=== PATIENT | female | born 1960 | race Caucasian/White ===

== ENCOUNTER 2017-10-18 20:00 | Emergency (ER) | payer OTHER ==
[~2017-10-18] VITALS: Ht 167.6 cm; Wt 63.5 kg
[~2017-10-18 20:00] MED LIST: ESOM40CA PO; ESTR1PAT80 TD; SERT50TA PO; atarax
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
[2017-10-18] MEDS ORDERED: HYDROcodone/APAP 5/325MG 1 TAB TABLET PO ONE (22:45)
[2017-10-18] MEDS ORDERED: NAPROXEN 500 MG TABLET PO ONE (22:45)
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
[2017-10-19] MEDS ORDERED: NAPR-683 PO (00:57)
[2017-10-19] MEDS ORDERED: CYCL10TA2 PO (00:57)
[2017-10-19 01:00] VITALS: BP 112/56
[2017-10-19] MEDS ORDERED: CYCLOBENZAPRINE 10 MG TABLET. PO ONE (01:00)
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
== END 2017-10-19 01:15 | disposition home or self-care (01) ==
LOC: ER 20:00
DX: S16.1XXA Strain of muscle, fascia and tendon at neck level, initial encounter (principal); S29.012A Strain of muscle and tendon of back wall of thorax, initial encounter; S46.912A Strain of unspecified muscle, fascia and tendon at shoulder and upper arm level, left arm, initial encounter; R51 Headache; K21.9 Gastro-esophageal reflux disease without esophagitis; M41.9 Scoliosis, unspecified; G89.29 Other chronic pain; Z98.1 Arthrodesis status; V43.52XA Car driver injured in collision with other type car in traffic accident, initial encounter; Y93.I9 Activity, other involving external motion; Y92.410 Unspecified street and highway as the place of occurrence of the external cause; Y99.8 Other external cause status
CPT/HCPCS: 70450; 72072; 72125; 99284-25

== ENCOUNTER 2020-07-05 12:43 | Emergency (ER) | payer OTHER ==
[~2020-07-05] VITALS: Ht 167.6 cm; Wt 64.6 kg
[~2020-07-05 12:43] MED LIST changes: +CYCL10TA2 PO; +NAPR-683 PO
--- NOTE | 2020-07-05 14:32 | RAD ---
EXAM: Right lower extremity venous Doppler sonogram. HISTORY: Pain and swelling. TECHNIQUE: Parkinson scale and color Doppler sonographic evaluation of the right lower extremity veins with spectral waveform analysis was performed. FINDINGS: There is normal color flow, normal compressibility and there are normal spectral waveforms in the common femoral, superficial femoral, popliteal, posterior tibial and greater saphenous veins. IMPRESSION: No Doppler evidence of lower extremity deep venous thrombosis. Electronically signed by: Clementina Fleming MD (07/05/2020 2:29 PM) [id number]
[2020-07-05 14:59] VITALS: BP 131/76
--- NOTE | 2020-07-05 15:13 | PHYS DOC ---
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 She states it started shortly after she had a colonoscopy a couple of weeks ago. She denies any chest pain or shortness of breath. She denies dyspnea on exertion. She does state the pain in her calf gets worse when she tries to go downstairs. She does not recall any specific trauma to the calf. [] Review of Systems: Review of Systems: Constitutional: Denies fever or chills. [] Eyes: Denies change in visual acuity. [] HENT: Denies nasal congestion or sore throat. [] Respiratory: Denies cough or shortness of breath. [] Cardiovascular: Denies chest pain or edema. [] GI: Denies abdominal pain, nausea, vomiting, bloody stools or diarrhea. [] : Denies dysuria. [] Musculoskeletal: Per HPI [] Integument: Denies rash. [] Neurologic: Denies headache, focal weakness or sensory changes. [] Endocrine: Denies polyuria or polydipsia. [] Lymphatic: Denies swollen glands. [] Psychiatric: Denies depression or anxiety. [] Heart Score: Risk Factors: Risk Factors: DM, Current or recent (<one month) smoker, HTN, HLP, family history of CAD, obesity. Risk Scores: Score 0 - 3: 2.5% MACE over next 6 weeks - Discharge Home Score 4 - 6: 20.3% MACE over next 6 weeks - Admit for Clinical Observation Score 7 - 10: 72.7% MACE over next 6 weeks - Early Invasive Strategies Allergies: Allergies: Allergies Coded Allergies Type Severity Reaction Last Updated Verified No Known Drug Allergies 05/04/15 No Physical Exam: PE: Constitutional: Well developed, well nourished, no acute distress, non-toxic appearance. [] HENT: Normocephalic, atraumatic, bilateral external ears normal, oropharynx moist, no oral exudates, nose normal. [] Eyes: PERRLA, EOMI, conjunctiva normal, no discharge. [] Neck: Normal range of motion, no tenderness, supple, no stridor. [] Cardiovascular:Heart rate regular rhythm, no murmur [] Lungs & Thorax: Bilateral breath sounds clear to auscultation [] Abdomen: Bowel sounds normal, soft, no tenderness, no masses, no pulsatile masses. [] Skin: No obvious bruising. [] Back: No tenderness, no CVA tenderness. [] Extremities: Right calf is mildly swollen and tender to palp in the mid belly of the gastroc [] Neurologic: Alert and oriented X 3, normal motor function, normal sensory function, no focal deficits noted. [] Psychologic: Affect normal, judgement normal, mood normal. [] Current Patient Data: Vital Signs: Vital Signs Date Time Temp Pulse Resp B/P (MAP) Pulse Ox O2 Delivery O2 Flow Rate FiO2 07/05/20 13:25 98.2 69 16 160/95 (116) 100 Room Air 98.2 EKG: EKG: [] Radiology/Procedures: Radiology/Procedures: []REASON: right calf pain PROCEDURE: VENOUS LOWER EXTREMITY RIGHT EXAM: Right lower extremity venous Doppler sonogram. HISTORY: Pain and swelling. TECHNIQUE: Parkinson scale and color Doppler sonographic evaluation of the right lower extremity veins with spectral waveform analysis was performed. FINDINGS: There is normal color flow, normal compressibility and there are normal spectral waveforms in the common femoral, superficial femoral, popliteal, posterior tibial and greater saphenous veins. IMPRESSION: No Doppler evidence of lower extremity deep venous thrombosis. Course & Med Decision Making: Course & Med Decision Making Pertinent Labs and Imaging studies reviewed. (See chart for details) [] Dragon Disclaimer: Dragon Disclaimer: This electronic medical record was generated, in whole or in part, using a voice recognition dictation system. Departure Departure Impression: Primary Impression: Muscle strain Disposition: 01 HOME, SELF-CARE Condition: STABLE Referrals: LINK VILLELA DO (PCP) Patient Instructions: Muscle Cramps, [id number] Additional Instructions: Return to the emergency department with any new or concerning symptoms Justicifation of Admission Dx: Justifications for Admission: Justification of Admission Dx: PAGE High DO Jul 05, 2020 15:13
== END 2020-07-05 15:25 | disposition home or self-care (01) ==
LOC: ER 12:43
DX: S86.911A Strain of unspecified muscle(s) and tendon(s) at lower leg level, right leg, initial encounter (principal); K21.9 Gastro-esophageal reflux disease without esophagitis; E78.00 Pure hypercholesterolemia, unspecified; Z90.710 Acquired absence of both cervix and uterus; X50.9XXA Other and unspecified overexertion or strenuous movements or postures, initial encounter; Y93.89 Activity, other specified; Y92.89 Other specified places as the place of occurrence of the external cause; Y99.8 Other external cause status
CPT/HCPCS: 93971; 99284

== ENCOUNTER → 2020-08-24 | Outpatient (CLI) | payer OTHER | LOC: LAB 09:25 | PROVIDERS: ATTEND Internal Medicine Pulmonary Disease | DX: R51.9 Headache, unspecified (principal); R68.83 Chills (without fever); J02.9 Acute pharyngitis, unspecified; R09.81 Nasal congestion; Z20.828 Contact with and (suspected) exposure to other viral communicable diseases | CPT/HCPCS: U0003-CS ==